=== PATIENT | male | born 1960 | race Caucasian/White ===

== ENCOUNTER 2020-08-11 06:19 | Day surgery (SDC) | payer BC ==
[2020-08-10 10:55] VITALS: BMI 24.8
[2020-08-11] MEDS ORDERED: Levofloxacin 500 mg/D5W 100 ml Premix Bag ONE (06:48)
[2020-08-11] MEDS ORDERED: Fentanyl 100 MCG/2 ML VIAL ONE (08:29)
[2020-08-11] MEDS ORDERED: Midazolam HCl 2 mg/2 ml Vial ONE (08:29)
[2020-08-11] MEDS ORDERED: Phenazopyridine HCl 100 MG TAB ONE (08:59)
[2020-08-11] MEDS ORDERED: PROPOFOL 200 MG/20 ML VIAL ONE (09:07)
--- NOTE | 2020-08-11 09:53 | OP ---
DATE OF PROCEDURE: 08/11/2020 PREOPERATIVE DIAGNOSIS: A 60-year-old male with history of BPH, IPSS score of 27, history of incomplete emptying with PVR of 130 mL. POSTOPERATIVE DIAGNOSIS: A 60-year-old male with history of BPH, IPSS score of 27, history of incomplete emptying with PVR of 130 mL. PROCEDURES PERFORMED: Cystoscopy; meatal calibration 18-Singaporean, dilated to 22-Singaporean; UroLift implant x6. ANESTHESIA: TIVA. COMPLICATIONS: None apparent. DISPOSITION: To recovery room in stable condition. INDICATIONS FOR THE PROCEDURE AND HISTORY: Mr. Altman is a pleasant 60-year-old male with history of impotence, BPH, weak stream, incomplete emptying and he presented for evaluation of BPH surgical intervention. He underwent appropriate workup, and is good candidate for UroLift and presents today for procedure. Indications for the procedure were reviewed as well as alternative options. Risks and complications of procedures have been discussed with him in detail including, but not limited to, bleeding, pain, infection, injury to adjacent organs, chronic pain, possible incrustation, migration of implant, warranting further treatment. All questions answered to his satisfaction, and he desired to proceed without reservation. DESCRIPTION OF PROCEDURE: After an informed consent was signed, the patient was taken to the operating room, placed in a dorsal lithotomy position with the genital area prepped and draped in the usual surgical sterile fashion. There was some difficulty passing the 21-Singaporean cystoscope; therefore, we calibrated his urethra with Atlantic sounds to about 16 and 18-Singaporean, subsequently dilated to 22- [place]an. Subsequently, the scope was able to be passed without significant issues, although local cystoscopy demonstrated questionable early forming proximal urethral stricture. Under anesthesia, I did not see any stricture warranting treatment or dilatation. Prostatic urethra was again staged demonstrating bilobar hyperplasia with a high median bar, diffusely trabeculated bladder consistent with chronic outlet obstruction. At this time, we transitioned to the UroLift device with a visual obturator, and implanted the left lateral lobe first. A total of 3 implants on the left, three on the right with a total of six UroLift implants. This demonstrated a good anterior channel created, he tolerated the procedure well. The scope was removed, in which he demonstrated very strong flow. An 18-Sing[place]an Colón catheter was placed, we will watch him for degree of hematuria and we will initiate voiding trial if indicated. He will follow up with me tomorrow for peak flow PVR. Job ID: [id number] [id number]
== END 2020-08-11 16:30 | disposition home or self-care (01) ==
LOC: SDC 06:19
PROVIDERS: ATTEND Urology
PROC: 0T7D8DZ Dilation of Urethra with Intraluminal Device, Via Natural or Artificial Opening Endoscopic (ICD-10-PCS; principal; 2020-08-11)
DX: N40.1 Benign prostatic hyperplasia with lower urinary tract symptoms (principal); R39.14 Feeling of incomplete bladder emptying; R39.12 Poor urinary stream; N52.9 Male erectile dysfunction, unspecified; D64.9 Anemia, unspecified; M19.90 Unspecified osteoarthritis, unspecified site; Z88.8 Allergy status to other drugs, medicaments and biological substances; Z79.899 Other long term (current) drug therapy
CPT/HCPCS: J1956; J2250; J2704; J3010; L8699